=== PATIENT | female | born 1995 | race African-American/Black ===

== ENCOUNTER 2017-11-04 14:45 | Emergency (ER) | payer SELFPAY ==
[~2017-11-04] VITALS: Ht 162.6 cm; Wt 95.0 kg
[~2017-11-04 14:45] MED LIST: Z.0.NO CURRENT MEDS
[2017-11-04 14:47] VITALS: BP 136/65; PULSE 117; RESP 16; TEMP 99; O2SAT 100
--- NOTE | 2017-11-04 15:12 | PD ---
HPI Chief Complaint: Back/ Neck Pain or Injury Time Seen by Provider: 14:57 Travel History International Travel<30 days: No Contact w/Intl Traveler<30days: No Traveled to known affect area: No History of Present Illness HPI 22-year-old female presents to the emergency department with complaint of shooting pain in her mid back that started on the right side and is now on the left side for 2 days. Denies injury. Denies encopresis, incontinence, saddle anesthesias. Denies drug use or cancer. Denies fever, vomiting, abdominal pain. Denies dysuria or hematuria. Reports increased urination and urinary hesitancy. Denies history of kidney stones. Denies contraception use. Last menstrual period was October 04-. Rates pain /. Says it is constant. Describes it as stabbing, shooting sensation. Worse with movement. No known relieving factors. Has not taken any medication or tried treatments to alleviate her symptoms. Primary CARE providers Dr. Rose. No known allergies. Denies significant past medical history. Has no other medical complaints. No other modifying factors or associated signs or symptoms. PFSH Past Medical History Medical History: Denies Significant Hx Immunizations Current: Yes ?: Not LMP: 10/04/17 Past Surgical History Section: Yes Social History Alcohol Use: Yes Tobacco Use: Yes Substance Use: No Allergies-Medications (Allergen,Severity, Reaction): Coded Allergies: No Known Allergies (Verified Adverse Reaction, Unknown, 11/04/17) Reported Meds & Prescriptions Reported Meds & Active Scripts Active Ibuprofen 800 Mg Tab 800 Mg PO Q6HR PRN Pyridium (Phenazopyridine HCl) 100 Mg Tab 100 Mg PO Q8H PRN Keflex (Cephalexin) 500 Mg Cap 500 Mg PO Q12H 7 Days Reported No Current Meds (Miscellaneous Medication) Misc Review of Systems Except as stated in HPI: all other systems reviewed are Neg Physical Exam Narrative GENERAL: Well-nourished, well-developed black patient, in no acute distress; afebrile, nontoxic-appearing SKIN: Warm and dry. HEAD: Atraumatic. Normocephalic. EYES: Pupils equal and round. No scleral icterus. No injection or drainage. ENT: Mucosa pink and moist. Airway patent. NECK: Trachea midline. CARDIOVASCULAR: Regular rate. RESPIRATORY: No accessory muscle use. GASTROINTESTINAL: Abdomen soft, non-tender, nondistended. Positive bowel sounds. No hepato-splenomegaly, or palpable masses. No guarding. MUSCULOSKELETAL: Bilateral lower extremities supple and non-tense with 2+ pedal pulses and sensory intact; with full range of motion and 5/5 strength. 2 + DTRs bilaterally. Active dorsiflexion and extension of bilateral feet. Left straight leg raise is positive for low back pain. Ambulatory in room with normal gait. Sitting up in bed at 90. No obvious deformities. No clubbing. No cyanosis. No edema. BACK: Left CVA tenderness. no midline point tenderness on palpation of the lumbar spine. No obvious deformities. NEUROLOGICAL: Awake and alert. Oriented 3. No obvious cranial nerve deficits. Motor grossly within normal limits. Normal speech. Moves all extremities. 5/5 strength to all extremities. Sensory intact. PSYCHIATRIC: Appropriate mood and affect; insight and judgment normal. Data Data Last Documented VS Vital Signs Date Time Temp Pulse Resp B/P (MAP) Pulse Ox O2 Delivery O2 Flow Rate FiO2 11/04/17 17:35 98 16 99 Room Air 11/04/17 14:47 99.0 136/65 (88) Orders Orders Urinalysis - C+S If Indicated (11/04/17 15:11) Ed Urine Pregnancytest Poc (11/04/17 15:11) Ibuprofen (Motrin) (11/04/17 15:15) Methocarbamol (Robaxin) (11/04/17 15:15) Urine Culture (11/04/17 15:50) Lidocaine 1% Inj (50 Ml) (Xylocaine 1% I (11/04/17 17:30) Ceftriaxone Inj (Rocephin Inj) (11/04/17 17:30) Ed Discharge Order (11/04/17 17:29) Labs Laboratory Tests Test 11/04/17 15:50 Urine Color YELLOW Urine Turbidity HAZY Urine pH 7.5 Urine Specific [place] 1.021 Urine Protein 30 mg/dL Urine Glucose (UA) NEG mg/dL Urine Ketones NEG mg/dL Urine Occult Blood SMALL Urine Nitrite NEG Urine Bilirubin NEG Urine Urobilinogen LESS THAN 2.0 MG/DL Urine Leukocyte Esterase LARGE Urine RBC 16 /hpf Urine WBC 140 /hpf Urine WBC Clumps FEW Urine Squamous Epithelial Cells 13 /hpf Urine Mucus FEW /lpf Microscopic Urinalysis Comment CULTURE INDICATED MDM Medical Decision Making Medical Screen Exam Complete: Yes Emergency Medical Condition: Yes Medical Record Reviewed: Yes Differential Diagnosis Acute back pain, pyelonephritis, UTI, kidney stone Narrative Course 22-year-old female with left-sided mid back pain. She has urinary symptoms. Urinalysis, UPT, ibuprofen, Robaxin ordered. Urinalysis positive for UTI. Suspecting pyelonephritis. Rocephin 1 g IM administered in the ER. Ibuprofen, Pyridium, Keflex prescribed for home. Instructed patient to follow up with primary care provider. Patient verbalizes understanding and agreement with treatment plan. Patient is medically cleared and stable for discharge. Discussed reasons to return to the emergency department. Patient agrees with treatment plan. The patients vital signs are stable and the patient is stable for outpatient follow-up and treatment. Patient discharged home, stable and in no acute distress. Diagnosis Primary Impression: UTI (urinary tract infection) Qualified Codes: N39.0 - Urinary tract infection, site not specified Referrals: [facility] Primary Care Physician Patient Instructions: General Instructions, Urinary Tract Infection in Women ( ED) Departure Forms: Tests/Procedures, Work Release Enter return to work date: Nov 06, 2017 Additional Instructions: Take antibiotics as prescribed and complete full course Take Pyridium for bladder spasms: Pyridium will turn your urine bright orange Drink plenty of fluids Maintain good personal hygiene Follow-up with primary care provider Return to the emergency department immediately with worsening of symptoms Med/Other Pt SpecificInfo: Prescription(s) given Scripts Ibuprofen (Ibuprofen) 800 Mg Tab 800 MG PO Q6HR Y for PAIN, #20 TAB 0 Refills Prov: Tatyana Crowley 11/04/17 Phenazopyridine (Pyridium) 100 Mg Tab 100 MG PO Q8H Y for DYSURIA, #10 TAB 0 Refills Prov: Tatyana CrowleyP 18 Cephalexin (Keflex) 500 Mg Cap 500 MG PO Q12H for Infection for 7 Days, #14 CAP 0 Refills Prov: Tatyana Crowley 11/04/17 Disposition: 01 DISCHARGE HOME Condition: Stable Tatyana Crowley Nov 04, 2017 15:12
[2017-11-04] MEDS ORDERED: IBUPROFEN 800 MG TAB PO ONE (15:15)
[2017-11-04] MEDS ORDERED: METHOCARBAMOL 500 MG TAB PO ONE (15:15)
[2017-11-04 16:03] VITALS: PULSE 104
[2017-11-04 16:45] LABS: BILIRUBIN, URINE NEG (NEG); BLOOD, URINE SMALL (NEG); GLUCOSE,URINE NEG (NEG); KETONE, URINE NEG (NEG); MUCUS URINE FEW /lpf (OCC); NITRITE,URINE NEG (NEG); PH, URINE 7.5 (5.0-8.5); SQUAMOUS EPITHELIAL CELL URINE 13 /hpf (0-5); URINE COLOR YELLOW (YELLW/STRAW); URINE LEUKOCYTE ESTERASE LARGE (NEG); WHITE BLOOD CELL CLUMPS FEW
[2017-11-04] MEDS ORDERED: IBUP1TAB7 PO (17:29)
[2017-11-04] MEDS ORDERED: PHEN0.4T PO (17:29)
[2017-11-04] MEDS ORDERED: CEPH-460 PO (17:29)
[2017-11-04] MEDS ORDERED: LIDOCAINE HCL 1% 50 ML VIAL IM ONE (17:30)
[2017-11-04 17:35] VITALS: PULSE 98; RESP 16; O2SAT 99
== END 2017-11-04 17:54 | disposition home or self-care (01) ==
LOC: NEPD 14:45
DX: N39.0 Urinary tract infection, site not specified (principal); B95.7 Other staphylococcus as the cause of diseases classified elsewhere; Z72.0 Tobacco use; Z79.899 Other long term (current) drug therapy
CPT/HCPCS: 81001; 84703; 86403; 87077; 87086; 87186; 96372; 99283; J0696

== ENCOUNTER 2017-11-07 13:34 | Emergency (ER) | payer SELFPAY ==
[~2017-11-07] VITALS: Ht 162.6 cm; Wt 95.5 kg
[~2017-11-07 13:34] MED LIST changes: +CEPH-460 PO; +IBUP1TAB7 PO; +PHEN0.4T PO
[2017-11-07 14:06] VITALS: BP 126/60; PULSE 96; RESP 16; TEMP 98.4; O2SAT 98
--- NOTE | 2017-11-07 14:18 | PD ---
HPI Chief Complaint: Complaint Time Seen by Provider: 14:15 Travel History International Travel<30 days: No Contact w/Intl Traveler<30days: No Traveled to known affect area: No History of Present Illness HPI 22-year-old female came to the emergency room with history of abdominal pain and back pain that has persisted since her last visit. Patient was seen in the emergency room 2-3 days ago for similar symptoms and was diagnosed with UTI. She was discharged home on Keflex. Patient says that today was the second day of taking it but her symptoms have persisted. She is also been nauseous. Yesterday she vomited once. Vital signs are stable here. No aggravating or relieving symptoms identified for the pain. Patient does not appear to be in significant distress currently. There was a urine culture result available and the culture shows no sensitivity to Keflex. PFSH Past Medical History Narrative Medical List of her past medical, surgical, social and family history is reviewed from the nursing note Immunizations Current: Yes LMP: october 04-2017 Past Surgical History Section: Yes Social History Alcohol Use: Yes Tobacco Use: Yes Substance Use: No Allergies-Medications (Allergen,Severity, Reaction): Coded Allergies: No Known Allergies (Verified Adverse Reaction, Unknown, 11/07/17) Comments List of her allergies reviewed from the nursing note. Reported Meds & Prescriptions Reported Meds & Active Scripts Active Zofran Odt (Ondansetron Odt) 4 Mg Tab 4 Mg SL Q6HR PRN Bactrim DS (Sulfamethoxazole-Trimethoprim) 800-160 Mg Tab 1 Tab PO BID Ibuprofen 800 Mg Tab 800 Mg PO Q6HR PRN Pyridium (Phenazopyridine HCl) 100 Mg Tab 100 Mg PO Q8H PRN Keflex (Cephalexin) 500 Mg Cap 500 Mg PO Q12H 7 Days Narrative Medication List of her home medications reviewed from the nursing note Review of Systems Except as stated in HPI: all other systems reviewed are Neg Gastrointestinal: Positive: Nausea, Abdominal Pain Musculoskeletal: Positive: Pain Physical Exam Narrative GENERAL: Awake, alert, no obvious distress SKIN: Focused skin assessment warm/dry. HEAD: Atraumatic. Normocephalic. EYES: Pupils equal and round. No scleral icterus. No injection or drainage. ENT: No nasal bleeding or discharge. Mucous membranes pink and moist. NECK: Trachea midline. No JVD. CARDIOVASCULAR: Regular rate and rhythm. No murmur appreciated. RESPIRATORY: No accessory muscle use. Clear to auscultation. Breath sounds equal bilaterally. GASTROINTESTINAL: Abdomen soft, non-tender, nondistended. Hepatic and splenic margins not palpable. MUSCULOSKELETAL: No obvious deformities. No clubbing. No cyanosis. No edema. NEUROLOGICAL: Awake and alert. No obvious cranial nerve deficits. Motor grossly within normal limits. Normal speech. PSYCHIATRIC: Appropriate mood and affect; insight and judgment normal. Data Data Last Documented VS Orders Orders Sulfamet-Trimeth Ds 800-160 Mg (Bactrim (11/07/17 14:45) Ondansetron Odt (Zofran Odt) (11/07/17 15:00) Ed Discharge Order (11/07/17 14:51) [facility] Medical Decision Making Medical Screen Exam Complete: Yes Emergency Medical Condition: Yes Medical Record Reviewed: Yes Differential Diagnosis UTI Narrative Course 2:58 PM patient is not and I noticed that the bacteria sensitive to Bactrim. I have given her 1 dose of Bactrim here. She will be discharged home on Bactrim prescription. I have asked her to stop taking the Keflex. Patient was explained about the sensitivity and resistance of the bacteria to Keflex and Bactrim and she understood. Procedures EKG Prior to Arrival: No Diagnosis Primary Impression: UTI (urinary tract infection) Qualified Codes: N39.0 - Urinary tract infection, site not specified Referrals: [facility] Additional Instructions: Stop taking the Keflex. Instead take the new antibiotic prescription that has been given to you. There is a prescription for nausea medication in case if you are nauseous. Follow-up with your primary care. Med/Other Pt SpecificInfo: Prescription(s) given, Med Stopped (Keflex) Scripts Ondansetron Odt (Zofran Odt) 4 Mg Tab 4 MG SL Q6HR Y for Nausea/Vomiting, #10 TAB 0 Refills Prov: Fredis Hsu MD 11/07/17 Sulfamethoxazole-Trimethoprim (Bactrim DS) 800-160 Mg Tab 1 TAB PO BID for Infection, #20 TAB 0 Refills Prov: Fredis Hsu MD 11/07/17 Disposition: 01 DISCHARGE HOME Condition: Stable Fredis Hsu MD Nov 07, 2017 14:18
[2017-11-07] MEDS ORDERED: SULFAMETHOXAZOLE-TRIMETHOPRIM DS 800-160 MG TAB PO ONE (14:45)
[2017-11-07] MEDS ORDERED: BACT800T5 PO (14:54)
[2017-11-07] MEDS ORDERED: ZOFR4TAB3 SL (14:54)
[2017-11-07] MEDS ORDERED: ONDANSETRON ODT 4 MG TAB PO ONE (15:00)
== END 2017-11-07 15:13 | disposition home or self-care (01) ==
LOC: NEPD 13:34
DX: N39.0 Urinary tract infection, site not specified (principal); Z72.0 Tobacco use
CPT/HCPCS: 99283